=== PATIENT | female | born 1925 | race Caucasian/White ===

== ENCOUNTER → 2016-09-08 | Outpatient (CLI) | payer MEDICARE, BC ==
[~2016-09-08] MED LIST: ALEN70TA15 PO; ASCO500C16 PO; ATOR20TA27 PO; CALC600T86 PO; EYEPROMISE RESTORE; FURO-33 PO; LATA2.5D7 BOTH EYES; LEVO50TA72 PO; METO25TA41 PO; OMEP40CA52 PO; POTA10CA32 PO; SUCR1TAB PO; [UNRECOGNIZED DRUG - OTHER] PO
[2016-09-08 07:14] LABS: ANION GAP 10 MEQ/L (5-15); BUN/CREATININE RATIO 24 RATIO (6-26); CALCIUM 9.7 MG/DL (8.4-10.2); CHLORIDE 105 MEQ/L (98-107); CO2 - CARBON DIOXIDE 33 MEQ/L (22-30); CREATININE 1.7 MG/DL (0.7-1.2); GLOMERULAR FILTRATION RATE 28; GLUCOSE 80 MG/DL (65-110); MAGNESIUM 2.1 MG/DL (1.6-2.3); SODIUM 148 MEQ/L (134-144)
[2016-09-08 07:22] LABS: PROBNP 4020 PG/ML (0-175)
== END ==
LOC: LABNH.APAL 00:16
PROVIDERS: ATTEND Internal Medicine Cardiovascular Disease
DX: I10 Essential (primary) hypertension (principal)
CPT/HCPCS: 36415; 80048; 83735; 83880; P9604

== ENCOUNTER → 2016-10-01 | Outpatient (CLI) | payer MEDICARE, BC ==
[2016-10-01 06:35] LABS: ANION GAP 12 MEQ/L (5-15); BUN/CREATININE RATIO 23 RATIO (6-26); CALCIUM 9.6 MG/DL (8.4-10.2); CHLORIDE 108 MEQ/L (98-107); CO2 - CARBON DIOXIDE 31 MEQ/L (22-30); CREATININE 1.6 MG/DL (0.7-1.2); GLOMERULAR FILTRATION RATE 30; GLUCOSE 85 MG/DL (65-110); MAGNESIUM 2.2 MG/DL (1.6-2.3); POTASSIUM 3.8 MEQ/L (3.6-5); SODIUM 151 MEQ/L (134-144)
[2016-10-01 06:42] LABS: PROBNP 3730 PG/ML (0-175)
== END ==
LOC: LABNH.APAL 00:38
PROVIDERS: ATTEND Internal Medicine Cardiovascular Disease
DX: I10 Essential (primary) hypertension (principal)
CPT/HCPCS: 36415; 80048; 83735; 83880; P9604

== ENCOUNTER → 2016-10-20 | Outpatient (CLI) | payer MEDICARE, BC ==
[2016-10-20 09:20] LABS: ANION GAP 14 MEQ/L (5-15); BUN/CREATININE RATIO 19 RATIO (6-26); CHLORIDE 106 MEQ/L (98-107); CO2 - CARBON DIOXIDE 30 MEQ/L (22-30); CREATININE 1.6 MG/DL (0.7-1.2); GLOMERULAR FILTRATION RATE 30; GLUCOSE 84 MG/DL (65-110); MAGNESIUM 2.2 MG/DL (1.6-2.3); POTASSIUM 3.9 MEQ/L (3.6-5); SODIUM 150 MEQ/L (134-144)
== END ==
LOC: LABNH.APAL 00:59
PROVIDERS: ATTEND Internal Medicine Cardiovascular Disease
DX: I10 Essential (primary) hypertension (principal)
CPT/HCPCS: 36415; 80048; 83735; P9604